=== PATIENT | male | born 1955 | race Caucasian/White ===

== ENCOUNTER 2016-06-13 14:01 | Outpatient (CLI) | payer MEDICAID | END 2016-06-13 23:59 | DX: Z00.00 Encounter for general adult medical examination without abnormal findings (principal); I50.9 Heart failure, unspecified; Z12.5 Encounter for screening for malignant neoplasm of prostate; Z20.5 Contact with and (suspected) exposure to viral hepatitis ==

== ENCOUNTER 2016-07-18 08:00 | Outpatient (CLI) | payer MEDICAID | END 2016-07-18 23:59 | DX: R31.0 Gross hematuria (principal) ==

== ENCOUNTER 2016-08-13 08:00 | Outpatient (CLI) | payer MEDICAID | END 2016-08-13 08:01 | disposition home or self-care (01) | LOC: LAB.R 08:00 | PROVIDERS: ATTEND Physician Assistant | DX: Z12.11 Encounter for screening for malignant neoplasm of colon (principal) | CPT/HCPCS: 82270 ==

== ENCOUNTER 2016-08-15 14:19 | Outpatient (CLI) | payer MEDICAID ==
[2016-08-15 19:44] LABS: BASOPHILS # (AUTO) 0.1 10^3/uL (0.0-0.1); BASOPHILS % (AUTO) 0.9 %; EOSINOPHILS # (AUTO) 0.2 10^3/uL (0.0-0.7); EOSINOPHILS % (AUTO) 2.6 %; HCT - HEMATOCRIT 44.3 % (42.0-52.0); HGB - HEMOGLOBIN 14.5 g/dL (14.0-18.0); LYMPHOCYTES # (AUTO) 2.9 10^3/uL (1.5-3.5); LYMPHOCYTES % (AUTO) 40.7 %; MEAN CORPUSCULAR HEMOGLOBIN 30.7 pg (27.0-31.0); MEAN CORPUSCULAR HGB CONC 32.8 g/dL (32.0-36.0); MEAN CORPUSCULAR VOLUME 93.5 fL (80.0-94.0); MEAN PLATELET VOLUME 9.1 fL (7.4-11.4); MONOCYTES # (AUTO) 0.8 10^3/uL (0.0-1.0); MONOCYTES % (AUTO) 10.9 %; NEUTROPHILS # (AUTO) 3.2 10^3/uL (1.5-6.6); NEUTROPHILS % (AUTO) 44.9 %; NUCLEATED RED BLOOD CELLS AUTO 0.1 /100WBC; RED BLOOD COUNT 4.74 10^6/uL (4.70-6.10); RED CELL DISTRIBUTION WIDTH 14.1 % (12.0-15.0); UNCORRECTED WHITE BLOOD COUNT 7.1 x10^3/uL; WHITE BLOOD COUNT 7.1 x10^3/uL (4.8-10.8)
[2016-08-15 19:55] LABS: ALBUMIN/GLOBULIN RATIO 1.4 (1.0-2.2); CREATININE 0.8 mg/dL (0.6-1.2); TOTAL PROTEIN 7.2 g/dL (6.7-8.2)
[2016-08-15 19:57] LABS: TROPONIN I 0.12 ng/mL (<0.49)
[2016-08-15 19:59] LABS: CREATINE KINASE MB 5.8 ng/mL (0.6-6.3)
== END 2016-08-15 14:20 | disposition home or self-care (01) ==
LOC: LAB.N 14:19
PROVIDERS: ATTEND Specialist
DX: I25.10 Atherosclerotic heart disease of native coronary artery without angina pectoris (principal); R07.89 Other chest pain; I42.0 Dilated cardiomyopathy; R55 Syncope and collapse; R19.5 Other fecal abnormalities; E78.5 Hyperlipidemia, unspecified; R00.0 Tachycardia, unspecified; I34.0 Nonrheumatic mitral (valve) insufficiency; I36.1 Nonrheumatic tricuspid (valve) insufficiency; C67.9 Malignant neoplasm of bladder, unspecified; K75.9 Inflammatory liver disease, unspecified
CPT/HCPCS: 36415; 80053; 82553; 84484; 85025

== ENCOUNTER 2016-08-28 11:07 | Outpatient (CLI) | payer MEDICAID ==
--- NOTE | 2016-08-28 12:13 | XRAY Report ---
TWO-VIEW CHEST: 08/28/2016 CLINICAL INDICATION: COPD, possible masses on outside CT. FINDINGS: Frontal and lateral views of the chest are compared to previous plain film of 06/04/2009, and report of outside CT IVP of 07/23/2016. The cardiac silhouette is not enlarged. There are two masses at the right lung base, the more inferi or measuring approximately 6 cm, and the more superior measuring approximately 4 cm. These are super imposed upon extensive emphysematous changes. No definite upper lobe mass is identified on either si de. No pneumothorax. IMPRESSION: TWO MASSES AT THE RIGHT LUNG BASE. PREVIOUSLY NOTED, PET/CT WOULD TYPICALLY BE RECOM MENDED TO EVALUATE FOR METABOLIC ACTIVITY AT THESE SITES. JOB #: [id number] EXT JOB #:[id number]
== END 2016-08-28 11:08 | disposition home or self-care (01) ==
LOC: DI.N 11:07
PROVIDERS: ATTEND Physician Assistant
DX: R91.8 Other nonspecific abnormal finding of lung field (principal)
CPT/HCPCS: 71020

== ENCOUNTER 2016-12-12 06:39 | Outpatient (CLI) | payer MEDICAID ==
[2016-12-12 19:17] LABS: ALBUMIN/GLOBULIN RATIO 1.5 (1.0-2.2); BILIRUBIN,TOTAL 0.8 mg/dL (0.2-1.0); CALCIUM 8.9 mg/dL (8.5-10.3); CREATININE 0.8 mg/dL (0.6-1.2); MAGNESIUM 1.8 mg/dL (1.7-2.8); POTASSIUM 3.9 mmol/L (3.5-5.0); TOTAL PROTEIN 7.1 g/dL (6.7-8.2)
[2016-12-16 18:36] LABS: TEST RESULT REPORT
== END 2016-12-12 06:40 | disposition home or self-care (01) ==
LOC: LAB.N 06:39
PROVIDERS: ATTEND Specialist
DX: I25.10 Atherosclerotic heart disease of native coronary artery without angina pectoris (principal); R07.89 Other chest pain; I42.0 Dilated cardiomyopathy; R55 Syncope and collapse; R19.5 Other fecal abnormalities; E78.5 Hyperlipidemia, unspecified; R00.0 Tachycardia, unspecified; I34.0 Nonrheumatic mitral (valve) insufficiency; I36.1 Nonrheumatic tricuspid (valve) insufficiency; C67.9 Malignant neoplasm of bladder, unspecified; R91.8 Other nonspecific abnormal finding of lung field
CPT/HCPCS: 36415; 80053; 80061; 81599; 83695; 83735

== ENCOUNTER 2019-03-24 12:04 | Outpatient (CLI) | payer MEDICAID, MEDICARE ==
[2019-03-24 18:37] LABS: BASOPHILS % (AUTO) 0.4 %; EOSINOPHILS % (AUTO) 0.4 %; HGB - HEMOGLOBIN 15.3 g/dL (14.0-18.0); LYMPHOCYTES # (AUTO) 1.7 10^3/uL (1.5-3.5); LYMPHOCYTES % (AUTO) 35.6 %; MEAN CORPUSCULAR HEMOGLOBIN 31.5 pg (27.0-31.0); MEAN CORPUSCULAR HGB CONC 32.8 g/dL (32.0-36.0); MEAN CORPUSCULAR VOLUME 95.9 fL (80.0-94.0); MEAN PLATELET VOLUME 10.9 fL (7.4-11.4); MONOCYTES # (AUTO) 0.7 10^3/uL (0.0-1.0); MONOCYTES % (AUTO) 15.5 %; NEUTROPHILS # (AUTO) 2.3 10^3/uL (1.5-6.6); NEUTROPHILS % (AUTO) 47.9 %; PLT - PLATELET COUNT 287 10^3/uL (130-450); RED BLOOD COUNT 4.86 10^6/uL (4.70-6.10); RED CELL DISTRIBUTION WIDTH 13.1 % (12.0-15.0); WHITE BLOOD COUNT 4.7 x10^3/uL (4.8-10.8)
[2019-03-24 19:05] LABS: BILIRUBIN,DIRECT 0.1 mg/dL (0.1-0.5); BILIRUBIN,TOTAL 0.7 mg/dL (0.2-1.0); TOTAL PROTEIN 7.1 g/dL (6.7-8.2)
[2019-03-25 12:01] LABS: HEPATITIS C ANTIBODY REACTIVE (NON-REACTIVE)
[2019-03-29 09:39] LABS: HCV RNA QNT <1.18 NOT DETECTED Log IU/mL (NOT DETECTED); HCV RNA QUANT RT PCR <15 NOT DETECTED IU/mL (NOT DETECTED)
== END 2019-03-24 23:59 | disposition home or self-care (01) ==
LOC: LAB.N 12:04
PROVIDERS: ATTEND Physician Assistant Medical
DX: Z20.5 Contact with and (suspected) exposure to viral hepatitis (principal); R10.11 Right upper quadrant pain
CPT/HCPCS: 36415; 80076; 83690; 85025; 86803

== ENCOUNTER 2019-04-04 09:38 | Outpatient (CLI) | payer MEDICARE ==
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
== END 2019-04-04 09:39 | disposition home or self-care (01) ==
LOC: DI.N 09:38
PROVIDERS: ATTEND Physician Assistant Medical
DX: R91.8 Other nonspecific abnormal finding of lung field (principal)
CPT/HCPCS: 71046